=== PATIENT | female | born 1965 | race Caucasian/White ===

== ENCOUNTER 2024-04-03 02:53 | Emergency (ER) | payer OTHER, SELFPAY ==
[2024-04-03 02:57] VITALS: BP 134/81
[2024-04-03 02:58] VITALS: BP 134/81
--- NOTE | 2024-04-03 03:25 | ED.GENMED ---
History of Present Illness
General
Chief Complaint: Social Service Referral
Source: patient
Exam Limitations: none
Time Seen by Provider: 04/03/24 03:12
Nursing documentation reviewed up to this point in time: agreed with
History of Present Illness
History of Present Illness:
59-year-old female brought in by police she was sleeping in her car apparently she is homeless, occasionally sleeps in hotels tells me she paid for until this evening after going to a concert in [place] [employer] for a musician who she was looking forward to
seeing, apparently she had not paid enough money to stay in hotel was put out, fell asleep in her car police found her said she looks sleepy brought here here she is easily arousable, able to provide a complete history, she is from the [place]
area, had a stroke 6 weeks ago at [facility], she sounds like she is essentially homeless, because of mold in her apartment which she had for 5 years she has a chronic cough she has had brain surgery previously
Past History
Past History
ED Past Medical History: Seizures
ED Past Surgical History: Brain
Social History
Tobacco: Non-smoker
Alcohol: None
Drug: None
Personal: Single
Living: homeless
Employment: Not employed
Review of Systems
Review of Systems
All Other Systems: Not applicable
Constitutional: Reports fatigue
Respiratory: Reports cough
Phy Exam
Physical Exam
Physical Exam:
Physical Exam
General: 59-year-old female no acute distress
Neck: No jaundice
Heart: s1/s2 regular rate and rhythm, no murmur. equal radial pulses.
Lungs: no acute respiratory distress. No wheeze
Neuro: alert and oriented. Clear speech
Skin: no rash
Psychiatric: cooperative
Extremities: no edema.
Course
Orders/Labs/Results
Orders:
Orders
04/03/24 03:24
Case Management Consult ONCE
Case Management Consult: Discharge Planning
Vital Signs
Initial and Last Documented VS:
Initial Vital Signs
BP
134/81
04/03/24 02:57
Last Documented Vital Signs
Temp Pulse Resp BP Pulse Ox
97.8 F 77 19 134/81 98
04/03/24 02:58 04/03/24 02:58 04/03/24 02:58 04/03/24 02:58 04/03/24 02:58
MDM/Problems Addressed
Differential Diagnosis Includes:
Social stressors, chronic cough mold exposure distant history of seizure disorder none for over 20 years
MDM/Problems Addressed:
Homelessness
*Pulse Oximetry
Patient hypoxic: no
*Critical Care Note
Total Time (30-74mins, 75-104mins- exclusive of procedures): Not Applicable
ED Attending Note
-
Portions of this chart may have been created with voice recognition software.� Occasional wrong word or��sound alike� substitutions may have occurred due to the inherent limitations of voice recognition software.
Discharge Plan
Interventions
Interventions:
*Risk Screen - Suicide Last Done: 04/03/24 02:58
*General Assessment Last Done: 04/03/24 02:58
*Neglect/Abuse Screening Last Done: 04/03/24 02:58
*ED COVID-19 Vaccine History Last Done: 04/03/24 02:58
ED-Psychological Assessment Last Done: 04/03/24 03:09
Discharge Date and Time
Print Language: SERBIAN
[2024-04-03 07:21] LABS: % Basophils 0.5 % (0-2); % Eosinophils 1.7 % (0-6); % Immature Granulocytes 0.4 % (0-0.5); % Monocytes 10.1 % (1.7-9.3); % Neutrophils 63.3 % (42.2-75.2); Absolute Eosinophils 0.1 10^3/uL (0-0.7); Absolute Monocytes 0.8 10^3/uL (0.1-0.6); Absolute Neutrophils 5.2 10^3/uL (1.4-6.5); Hematocrit 37.6 % (37.0-47.0); Hemoglobin 12.9 g/dL (12.0-16.0); Mean Corp Hgb Conc. 34.3 g/dL (33.0-37.0); Mean Corpuscular Hgb 32.7 pg (27.0-31.0); Mean Corpuscular Volume 95.4 fL (81.0-99.0); Mean Platelet Volume 8.9 fL (7.4-10.4); Nucleated Red Blood Cells % 0 %; Platelet Count 299 10^3/uL (130-400); Red Blood Cell Count 3.94 10^6/uL (4.20-5.40); Red Cell Dist. Width 13.1 % (11.5-14.5); White Blood Cell Count 8.2 10^3/uL (4.8-10.8)
[2024-04-03 07:33] LABS: ALT (SGPT) 35 U/L (0-35); AST (SGOT) 44 U/L (14-36); Albumin 4.4 g/dl (3.5-5.0); Alkaline Phosphatase 63 U/L (38-126); Blood Urea Nitrogen 9 mg/dl (7-17); Calcium 9.1 mg/dl (8.4-10.2); Carbon Dioxide 23 mmol/L (22-30); Chloride 97 mmol/L (98-107); Glucose 92 mg/dl (70-99); Potassium 3.8 mmol/L (3.5-5.1); Sodium 132 mmol/L (135-145); Total Bilirubin 0.2 mg/dl (0.2-1.3); Total Protein 6.8 g/dl (6.3-8.2); eGFR > 60.00
--- NOTE | 2024-04-03 08:31 | ED.GENMED ---
History of Present Illness
General
Chief Complaint: Social Service Referral
Time Seen by Provider: 04/03/24 03:12
History of Present Illness
History of Present Illness:
See provider's note
Past History
Past History
ED Past Medical History: Seizures
ED Past Surgical History: Brain
Social History
Tobacco: Non-smoker
Alcohol: None
Drug: None
Personal: Single
Living: homeless
Employment: Not employed
Phy Exam
Physical Exam
Physical Exam:
See provider's note
Course
Orders/Labs/Results
Orders:
Orders
04/03/24 03:24
Case Management Consult ONCE
Case Management Consult: Discharge Planning
04/03/24 07:02
CR Chest - 2 Views Urgent
Comment:
Reason For Exam: Cough
04/03/24 07:13
Complete Blood Count/With Diff Urgent
Comprehensive Metabolic Panel Urgent
Abnormal Lab Results
04/03/24
07:13
RBC 3.94 L 10^6/uL
(4.20-5.40)
MCH 32.7 H pg
(27.0-31.0)
Absolute Monos (auto) 0.8 H 10^3/uL
(0.1-0.6)
Monocytes % 10.1 H %
(1.7-9.3)
Sodium 132 L mmol/L
(135-145)
Chloride 97 L mmol/L
(98-107)
AST 44 H U/L
(14-36)
04/03/24 07:13
04/03/24 07:13
Vital Signs
Initial and Last Documented VS:
Initial Vital Signs
BP
134/81
04/03/24 02:57
Last Documented Vital Signs
Temp Pulse Resp BP Pulse Ox
97.8 F 77 19 134/81 98
04/03/24 02:58 04/03/24 02:58 04/03/24 02:58 04/03/24 02:58 04/03/24 02:58
*Critical Care Note
Total Time (30-74mins, 75-104mins- exclusive of procedures): Not Applicable
Update Note
Update Note:
The care of patient was transitioned pending case management. Patient was found sleeping in her car. Patient is unsure why she came to the hospital. She does have a cough and is requesting blood work and a chest x-ray. Chest x-ray clear and
blood work with significance. Throughout her stay in the patient becoming more combative and argumentative. He care of patient included case management consult. Patient becoming more argumentative and does not want a wait in the emergency
department more wants to walk out.
The charge nurse will provide a cab voucher to get her back to her car
ED Attending Note
-
Portions of this chart may have been created with voice recognition software.� Occasional wrong word or��sound alike� substitutions may have occurred due to the inherent limitations of voice recognition software.
Discharge Plan
Departure
Patient Disposition: Home (Routine Discharge)
Date of Disposition: 04/03/24
Time of Disposition: 06:24
Patient with high blood pressure during this ER visit?: No
Condition: Good
Covid-19: Not Applicable
Discharge Problem:
Contact with mold
Referrals:
PRIVATE,PHYSICIAN [Family Provider] -
Activity Restrictions/Additional Instructions:
Please return if you have any other complaints or feel unsafe.
Interventions
Interventions:
*Risk Screen - Suicide Last Done: 04/03/24 02:58
*General Assessment Last Done: 04/03/24 02:58
*Neglect/Abuse Screening Last Done: 04/03/24 02:58
ED- Fall Risk Assessment Last Done: 04/03/24 08:45
*ED COVID-19 Vaccine History Last Done: 04/03/24 02:58
*Nursing Disposition Last Done: 04/03/24 08:43
ED-Psychological Assessment Last Done: 04/03/24 03:09
Discharge Date and Time
Discharge Date/Time: 04/03/24 08:44
Print Language: NIUEAN
--- NOTE | 2024-04-03 08:55 | CM ---
CM consult placed for homelessness. Patient asked to be d/c'd before CM could assess.
== END 2024-04-03 08:44 | disposition home or self-care (01) ==
LOC: EMR 02:53
PROVIDERS: EMERGENCY PHYSICIAN Student in an Organized Health Care Education/Training Program
DX: Z77.120 Contact with and (suspected) exposure to mold (toxic) (principal); R05.3 Chronic cough; Z59.02 Unsheltered homelessness; Z86.73 Personal history of transient ischemic attack (TIA), and cerebral infarction without residual deficits
CPT/HCPCS: 99284; 71046; 80053; 85025